=== PATIENT | male | born 1950 ===

== ENCOUNTER 2016-11-16 16:28 | Observation (INO) | payer MEDICARE ==
[2016-11-16 18:10] LABS: URINE BILIRUBIN NEGATIVE (NEGATIVE); URINE BLOOD NEGATIVE (NEGATIVE); URINE CLARITY CLEAR (Clear); URINE COLOR YELLOW (YELLOW); URINE GLUCOSE (UA) NEG (Normal); URINE LEUKOCYTE ESTERASE NEG Leu/uL (Negative); URINE NITRATE NEGATIVE (NEGATIVE); URINE PROTEIN NEGATIVE (NEGATIVE); URINE UROBILINOGEN 0.2-1.0 mg/dL (0.2-1.0)
[2016-11-16 18:11] LABS: BASO % 0.8 % (0.0-2.0); EOS # 0.3 K/uL (0.0-0.7); EOS % 4.6 % (0.0-4.0); HEMOGLOBIN 14.7 g/dL (12.0-18.0); LYMPH % 34.5 % (20.0-40.0); MEAN CELL VOLUME 91.4 fl (80.0-94.0); MEAN CORPUSCULAR HEMOGLOBIN 31.2 pg (27.0-31.0); MEAN CORPUSCULAR HGB CONC 34.1 g/dL (33.0-37.0); MEAN PLATELET VOLUME 8.5 fl (7.2-11.7); MONO # 0.6 K/uL (0.0-0.8); MONO % 9.8 % (0.0-10.0); NEUT # 2.9 K/uL (1.8-7.0); NEUT % 50.3 % (50.0-75.0); NRBC % 0.2 % (0.0-0.0); RBC 4.71 Mil/uL (4.40-5.90); WHITE BLOOD COUNT 5.8 K/uL (4.8-10.8)
[2016-11-16 18:21] LABS: ALB/GLOB RATIO 1.6 (1.0-2.1); ALBUMIN 4.2 g/dL (3.5-5.0); ALT/SGPT 41 U/L (21-72); AST/SGOT 24 U/L (17-59); BLOOD UREA NITROGEN 16 mg/dl (9-20); CALCIUM 9.7 mg/dL (8.4-10.2); GFR AFRICAN-AMERICAN > 60; GFR NON-AFRICAN AMERICAN > 60
[2016-11-16 18:56] LABS: PARTIAL THROMBOPLASTIN TIME 29.4 Seconds (25.6-37.1)
--- NOTE | 2016-11-16 19:15 | ED PDOC ---
HPI: General Adult Time Seen by Provider: 11/16/16 16:42 Chief Complaint (Nursing): Male Genitourinary Chief Complaint (Provider): Male Genitourinary History Per: Patient History/Exam Limitations: no limitations Onset/Duration Of Symptoms: Days (x2 weeks) Current Symptoms Are (Timing): Still Present Additional Complaint(s): 66 y/o female presents to the emergency department with a complaint of a left abdominal pain and flank pain for 2 weeks with worsening since onset. Associated with blood in the urine and nausea. Denies fever, chills, vomiting , diarrhea, or constipation. Of note, patient completed an US on November 12, 2016 as an outpatient which demonstrated stones bilateral with left renal cyst. Dr. Shirin PHAN stated she should return back to the ER if pain worsens. Patient presented to [place] emergency room previously on November 10, 2016 and was given a shot medication for the relief of pain. Urology: Dr. Rocio Crapio MD PMD: Dr. Karly Hughes MD Past Medical History Reviewed: Historical Data, Nursing Documentation, Vital Signs Vital Signs: Last Vital Signs Temp 98.6 F 11/18/16 13:00 Pulse 62 11/18/16 13:00 Resp 18 11/18/16 13:00 BP 114/70 11/18/16 13:00 Pulse Ox 99 11/18/16 13:00 - Medical History PMH: Anxiety, Benign Prostatic Hyperplasia, CAD (with stent), HTN, Hypercholesterolemia - Surgical History Surgical History: Coronary Stent - Family History Family History: States: Unknown Family Hx - Social History Current smoker - smoking cessation education provided: No Alcohol: None Drugs: Denies - Home Medications Home Medications: Ambulatory Orders Medication Instructions Recorded Aspirin [Alpine Aspirin] 81 mg PO DAILY 11/17/16 Atorvastatin Calcium 80 mg pe PO DAILY 11/17/16 Clopidogrel [Plavix] 75 mg PO DAILY 11/17/16 Escitalopram [Lexapro] 10 mg PO DAILY 11/17/16 Fenofibrate [Tricor] 145 mg PO DAILY 11/17/16 Fluticasone Propionate [Flovent 2 sprays KAYCEE DAILY 11/17/16 Diskus] Lidocaine [Lidocare] 1 patch TD TID 11/17/16 Montelukast Sodium [Singulair] 10 mg PO HS 11/17/16 Omeprazole 40 mg PO DAILY 11/17/16 Tamsulosin HCl [Flomax] 0.4 mg PO DAILY 11/17/16 Metoprolol Succinate [Toprol XL] 25 mg PO DAILY #30 tab 11/18/16 Tamsulosin [Flomax] 0.4 mg PO DAILY #30 cap 11/18/16 traMADol [Ultram] 50 mg PO Q6 PRN #20 tab 11/18/16 - Allergies Allergies/Adverse Reactions: Allergies Allergy/AdvReac Type Severity Reaction Status Date / Time No Known Allergies Allergy Verified 11/16/16 16:37 Review of Systems ROS Statement: Except As Marked, All Systems Reviewed And Found Negative Constitutional: Negative for: Fever, Chills Gastrointestinal: Positive for: Nausea, Abdominal Pain. Negative for: Vomiting , Diarrhea, Constipation Genitourinary Male: Positive for: Hematuria Musculoskeletal: Positive for: Other (Left flank pain) Physical Exam - Reviewed Nursing Documentation Reviewed: Yes Vital Signs Reviewed: Yes - Physical Exam Appears: Positive for: Non-toxic, In Acute Distress (Moderate painful distress) Head Exam: Positive for: ATRAUMATIC, NORMAL INSPECTION, NORMOCEPHALIC Skin: Positive for: Normal Color, Warm, Dry Neck: Positive for: Normal, Supple Cardiovascular/Chest: Positive for: Regular Rate, Rhythm. Negative for: Murmur Respiratory: Positive for: Normal Breath Sounds. Negative for: Accessory Muscle Use, Respiratory Distress Gastrointestinal/Abdominal: Positive for: Soft, Tenderness (Tender to palpation to the left upper and left lower quadrant), Distended (Mildly). Negative for: Normal Exam, Mass, Guarding, Rebound Back: Positive for: L CVA Tenderness (to palpation). Negative for: Normal Inspection Extremity: Positive for: Normal ROM. Negative for: Pedal Edema Neurologic/Psych: Positive for: Alert, Oriented - Laboratory Results Result Diagrams: 11/17/16 06:30 11/17/16 06:30 - ECG O2 Sat by Pulse Oximetry: 97 (RA) Pulse Ox Interpretation: Normal Medical Decision Making Medical Decision Making: Time: 17:21 Initial impression: Left flank pain and left abdominal pain. Differential include renal colic, pyelonephritis, colitis, diverticulitis, and cystitis. Initial plan: --Type and Screen STAT --ABD & Pelvis w/o PO & IV Contrast CT --Electrocardiogram STAT --COMP Metabolic Panel --Lact Acid, Plasma --ED Urine Dipstick (POC) --EKG-ED --CBC w/ differential --Partial Thromboplastin Time (COAG) --Prothrombin Time (COAG) --Morphine 4 mg IVP --Ondansetron 4 mg IVP --Blood Culture --Urine Culture --IV Insertion --Urinalysis STAT --Reevaluation Time: 18:47 --Abdomen/pelvis CT FINDINGS: Lower thorax: No acute findings. No pleural effusions. Bibasilar hypoventilatory changes. ABDOMEN: Liver: Unremarkable. No masses. Gallbladder and bile ducts: Unremarkable. No calcified stones. No ductal dilatation. Pancreas: Unremarkable. No ductal dilatation. Spleen: Unremarkable. No splenomegaly. Adrenals: Unremarkable. No mass. Kidneys and ureters: No hydronephrosis. One or 2 small non-obstructing stones in each kidney. No radiodense ureteral stones. A few small left renal cysts. Stomach and bowel: Unremarkable. No obstruction. No mucosal thickening. Appendix: A normal appendix is visualized. PELVIS: Bladder: Unremarkable. No stones. Reproductive: Unremarkable as visualized Intraperitoneal space: Unremarkable. No free air. No significant fluid collection. Bones/joints: No acute fracture nor dislocation. Soft tissues: Unremarkable. Vasculature: Unremarkable. No abdominal aortic aneurysm. Lymph nodes: Unremarkable. No enlarged lymph nodes. IMPRESSION: No acute pathology. Time: 20:05 --Abdomen/Pelvis with PO & IV Contrast CT --Admit to hospital routine on ED Observation for abdominal pain. Scribe Attestation: Documented by Juliane Pat, acting as a scribe for Maryann Hannah MD. Provider Scribe Attestation: All medical record entries made by the Scribe were at my direction and personally dictated by me. I have reviewed the chart and agree that the record accurately reflects my personal performance of the history, physical exam, medical decision making, and the department course for this patient. I have also personally directed, reviewed, and agree with the discharge instructions and disposition. ED OBSERVATION Date of observation admission: 11/16/16 Time of observation admission: 20:06 - Observation admission statement Patient is being placed in observation because:: abdominal pain - Goals of Observation Goals of observation are:: to medicate patient and observe him carefully due to pain. - Progress Note Progress Note: 11/16/16 21:36 --Patient is intaking PO & IV Contrast, preparing for CT completion. CT demonstrated possible appendicitis DW Dr Sams Surgery and Dr Parkinson Hospitalist. Disposition - Clinical Impression Clinical Impression: Abdominal pain - Disposition Disposition Time: 20:00 Condition: SERIOUS - Pt Status Changed To: Hospital Disposition Of: Observation - POA Present On Arrival: None
[2016-11-16] MEDS ORDERED: Iohexol 240 (50 ml) PO ONE (20:05)
[2016-11-16] MEDS ORDERED: Iohexol 240 (50 ml) ONE (20:20)
[2016-11-16] MEDS ORDERED: Iohexol 300 100 ML IJ ONE (21:13)
[2016-11-16] MEDS ORDERED: Sodium Chloride 0.9% 50 ML IV ONE (21:13)
--- NOTE | 2016-11-17 00:06 | CT ---
EXAM: CT Abdomen and Pelvis With Intravenous Contrast CLINICAL HISTORY: 66 years old, male; Pain; Abdominal pain; Flank; Left; Additional info: Luq/llq abd pain TECHNIQUE: Axial computed tomography images of the abdomen and pelvis with intravenous contrast. This CT exam was performed using one or more of the following dose reduction techniques: automated exposure control, adjustment of the mA and/or kV according to patient size, and/or use of iterative reconstruction technique. Coronal and sagittal reformatted images were created and reviewed. CONTRAST: 95 mL of [id number] administered intravenously. COMPARISON: CT - ABD PELVIS W/O PO OR IV CONT 11/16/2016 5:57:52 PM FINDINGS: Lower thorax: Minimal atelectasis. ABDOMEN: Liver: Unremarkable. No mass. Gallbladder and bile ducts: No calcified stones. No ductal dilation. Pancreas: No ductal dilation. No mass. Spleen: No splenomegaly. Adrenals: No mass. Kidneys and ureters: Few probable LEFT renal cysts. Small calculus within LEFT kidney. Punctate calculus within RIGHT kidney. No hydronephrosis. Stomach and bowel: Segmental areas of underdistention of LEFT colon. No definite mural thickening. No obstruction. Appendix: Slightly bulbous tip of appendix with wall calcifications, up to 0.9 cm. No inflammation. PELVIS: Bladder: Distended bladder. Reproductive: Unremarkable as visualized. ABDOMEN and PELVIS: Intraperitoneal space: No significant fluid collection. No free air. Bones/joints: Mild degenerative changes of spine. No acute fracture. Soft tissues: Unremarkable. Vasculature: Mild atherosclerotic disease. No aneurysm. Lymph nodes: No pathologically enlarged lymph nodes. IMPRESSION: 1. Nonobstructing renal calculi. 2. Bulbous tip of appendix with wall calcification but without inflammation. Early appendicitis, mucocele, or mass not entirely excluded. Clinical correlation is needed. 3. Incidental/non-acute findings are described above.
[2016-11-17] MEDS ORDERED: Ampicillin/Sulbactam 3 GM in Sodium Chloride 0.9% 100 ML IVPB STA (00:28)
[2016-11-17] MEDS ORDERED: Sodium Chloride 0.9% 1,000 ML IV SCH (01:15)
--- NOTE | 2016-11-17 01:25 | CP.PCM.HP ---
Present on Admission - Present on Admission Any Indicators Present on Admission: No Past Patient History - Past Social History Alcohol: None Drugs: Denies - CARDIAC Hx Hypercholesterolemia: Yes Hx Hypertension: Yes - PSYCHIATRIC Hx Anxiety: Yes - SURGICAL HISTORY Hx Coronary Stent: Yes - ANESTHESIA Hx Anesthesia: No Meds Allergies/Adverse Reactions: Allergies Allergy/AdvReac Type Severity Reaction Status Date / Time No Known Allergies Allergy Verified 11/16/16 16:37 Physical Exam - Constitutional Appears: No Acute Distress - Head Exam Head Exam: ATRAUMATIC, NORMOCEPHALIC - Eye Exam Eye Exam: EOMI, PERRL - ENT Exam ENT Exam: Mucous Membranes Moist - Neck Exam Neck exam: Positive for: Full Rom - Respiratory Exam Respiratory Exam: Clear to Auscultation Bilateral, NORMAL BREATHING PATTERN - Cardiovascular Exam Cardiovascular Exam: REGULAR RHYTHM, +S1, +S2 - GI/Abdominal Exam GI & Abdominal Exam: Soft, Tenderness Additional comments: mild generalized TTP - Extremities Exam Extremities exam: Positive for: full ROM - Neurological Exam Neurological exam: Alert, CN II-XII Intact, Oriented x3 - Psychiatric Exam Psychiatric exam: Normal Affect, Normal Mood - Skin Skin Exam: Dry, Warm Results - Vital Signs Recent Vital Signs: Last Vital Signs Temp 98.2 F 11/17/16 00:21 Pulse 72 11/17/16 00:21 Resp 18 11/17/16 00:21 BP 150/97 H 11/17/16 00:21 Pulse Ox 98 11/17/16 00:21 - Labs Result Diagrams: 11/16/16 18:00 11/16/16 18:00 - EKG Data EKG Interpreted by: Myself EKG shows normal: Sinus rhythm Rate: Normal - EKG Data EKG comments: 1 deg HB, PVCs - Imaging and Cardiology CT scan - abdomen Status: Report reviewed by me (Non obs calculi, ?early appx) Assessment & Plan (1) Appendicitis Assessment and Plan: 66 y/o male presenting with abd pain. Known nephrolithiasis. ?suspicion for early appendicitis. 1) Early appx -- per surgery, abx not recommended; low suspicion -NPO except medications, IVF -Pain control per scale -Zofran IV for nausea -Surgery consult ([facility], notified) 2) Nephrolithiasis -Cont IVF -Pain control as above -Urology consult 3) CAD -- stable 4) HTN -- stable 5) DVT PPx -- SCDs only Status: Acute (2) Nephrolithiasis Status: Acute (3) CAD (coronary artery disease) Status: Acute (4) HTN (hypertension) Status: Acute (5) DVT prophylaxis Status: Acute
[2016-11-17 07:02] LABS: HEMOGLOBIN 13.9 g/dL (12.0-18.0); MEAN CELL VOLUME 92.1 fl (80.0-94.0); MEAN CORPUSCULAR HEMOGLOBIN 31.1 pg (27.0-31.0); MEAN CORPUSCULAR HGB CONC 33.7 g/dL (33.0-37.0); RBC 4.49 Mil/uL (4.40-5.90); RED CELL DISTRIBUTION WIDTH 14.5 % (11.5-14.5); WHITE BLOOD COUNT 5.2 K/uL (4.8-10.8)
--- NOTE | 2016-11-17 07:40 | CP.PCM.CON ---
<Susie Locke - Last Filed: 11/17/16 07:35> History of Present Illness - History of Present Illness History of Present Illness: Surgery consult for Dr. Sams HPI: This is a 66 y/o male with MHx significant for HTN, HLD, and CAD and nephrolithiasis presents with low abdominal pain. Pain started 2 weeks ago and and more on the L side radiating to hist L flank. Pt had similar episodes in the past. Symptoms became progressively worse. Pain is not associated with food. Denies recent travel/ sick contact/ f/c/n/v/d/CP/SOB/dysuria/hematuria. CT shows renal stones, possible early appendicitis with calcified tips. Surgery was consulted to evaluate for appendicitis. Pt has no white count. MHx: HTN, HLD, CAD, Nephrolithiasis SHx: Coronary stents Allergies: NKDA Medications: Plavix. Social Hx: Lives with family, no tobacco, no significant EtOH use Review of Systems - Review of Systems Review of Systems: See HPI Past Patient History - Past Medical History & Family History Past Medical History?: Yes - Past Social History Smoking Status: Never Smoked - CARDIAC Hx Cardiac Disorders: Yes Hx Hypercholesterolemia: Yes Hx Hypertension: Yes - PULMONARY Hx Respiratory Disorders: No - NEUROLOGICAL Hx Neurological Disorder: No - HEENT Hx HEENT Problems: No - RENAL Hx Kidney Stones: Yes - ENDOCRINE/METABOLIC Hx Endocrine Disorders: No - HEMATOLOGICAL/ONCOLOGICAL Hx Blood Disorders: No Hx AIDS: No Hx Human Immunodeficiency Virus (HIV): No - INTEGUMENTARY Hx Dermatological Problems: No - MUSCULOSKELETAL/RHEUMATOLOGICAL Hx Musculoskeletal Disorders: No Hx Falls: No - GASTROINTESTINAL Hx Gastrointestinal Disorders: No - GENITOURINARY/GYNECOLOGICAL Hx Genitourinary Disorders: Yes Hx Prostate Problems: Yes (bph) - PSYCHIATRIC Hx Psychophysiologic Disorder: Yes Hx Anxiety: Yes Hx Substance Use: No - SURGICAL HISTORY Hx Surgeries: Yes Hx Coronary Stent: Yes - ANESTHESIA Hx Anesthesia: No Hx Anesthesia Reactions: No Hx Malignant Hyperthermia: No Meds Allergies/Adverse Reactions: Allergies Allergy/AdvReac Type Severity Reaction Status Date / Time No Known Allergies Allergy Verified 11/16/16 16:37 - Medications Medications: Current Medications Clopidogrel Bisulfate (Plavix) 75 mg PO DAILY [facility] Escitalopram Oxalate (Lexapro) 10 mg PO DAILY [facility] Hydrochlorothiazide (Hydrodiuril) 25 mg PO DAILY [facility] Sodium Chloride (Sodium Chloride 0.9%) 1,000 mls @ 100 mls/hr IV .Q10H [facility] Stop: 11/17/16 11:14 Last Admin: 11/17/16 03:33 Dose: 100 mls/hr Lisinopril (Zestril) 20 mg PO DAILY [facility] Metoprolol Succinate (Toprol Xl) 50 mg PO DAILY [facility] Morphine Sulfate (Morphine) 1 mg IVP Q4 PRN PRN Reason: Pain, Mild (1-3) Morphine Sulfate (Morphine) 2 mg IVP Q4 PRN PRN Reason: Pain, moderate (4-7) Ondansetron HCl (Zofran Inj) 4 mg IVP Q6 PRN PRN Reason: Nausea/Vomiting Pantoprazole Sodium (Protonix Ec Tab) 40 mg PO DAILY [facility] Tamsulosin HCl (Flomax) 0.4 mg PO DAILY [facility] Physical Exam - Constitutional Appears: Well, No Acute Distress - Head Exam Head Exam: ATRAUMATIC, NORMAL INSPECTION, NORMOCEPHALIC - Eye Exam Eye Exam: EOMI, Normal appearance, PERRL Pupil Exam: NORMAL ACCOMODATION, PERRL - ENT Exam ENT Exam: Mucous Membranes Moist, Normal Exam - Neck Exam Neck exam: Positive for: Normal Inspection - Respiratory Exam Respiratory Exam: Clear to Auscultation Bilateral, NORMAL BREATHING PATTERN - Cardiovascular Exam Cardiovascular Exam: REGULAR RHYTHM - GI/Abdominal Exam GI & Abdominal Exam: Normal Bowel Sounds, Soft, Tenderness. absent: Distended, Firm, Guarding, Hernia Additional comments: Low abd TTP : L >R - Rectal Exam Rectal Exam: NORMAL INSPECTION - Exam Exam: NORMAL INSPECTION - Extremities Exam Extremities exam: Positive for: full ROM, normal inspection - Back Exam Back exam: FULL ROM, NORMAL INSPECTION, tenderness - Neurological Exam Neurological exam: Alert, CN II-XII Intact, Normal Gait, Oriented x3, Reflexes Normal - Psychiatric Exam Psychiatric exam: Normal Affect, Normal Mood - Skin Skin Exam: Dry, Intact, Normal Color, Warm Results - Vital Signs Recent Vital Signs: Last Vital Signs Temp 97.5 F L 11/17/16 03:45 Pulse 64 11/17/16 03:45 Resp 18 11/17/16 04:20 BP 130/81 11/17/16 03:48 Pulse Ox 98 11/17/16 00:21 - Labs Result Diagrams: 11/17/16 06:30 11/16/16 18:00 Labs: Laboratory Results - last 24 hr 11/17/16 06:30 WBC 5.2 RBC 4.49 Hgb 13.9 Hct 41.3 MCV 92.1 MCH 31.1 H MCHC 33.7 RDW 14.5 Plt Count 149 Assessment & Plan - Assessment and Plan (Free Text) Assessment: R/O appendicitis LLQ > RUQ tenderness CT shows renal stones, possible early appendicitis with calcified tips. WBC : WNL -Plavix held until evaluated by attending surgeon today -NPO -Pain control -f/u Urology Will DW attending <Dong Sams - Last Filed: 11/17/16 11:40> History of Present Illness - History of Present Illness History of Present Illness: Patient was seen and examined at the bedside. Agree with resident's note above Meds - Medications Medications: Current Medications Escitalopram Oxalate (Lexapro) 10 mg PO DAILY [facility] Last Admin: 11/17/16 08:39 Dose: 10 mg Lisinopril (Zestril) 20 mg PO DAILY [facility] Last Admin: 11/17/16 08:40 Dose: 20 mg Metoprolol Succinate (Toprol Xl) 50 mg PO DAILY [facility] Last Admin: 11/17/16 08:40 Dose: 50 mg Morphine Sulfate (Morphine) 1 mg IVP Q4 PRN PRN Reason: Pain, Mild (1-3) Morphine Sulfate (Morphine) 2 mg IVP Q4 PRN PRN Reason: Pain, moderate (4-7) Ondansetron HCl (Zofran Inj) 4 mg IVP Q6 PRN PRN Reason: Nausea/Vomiting Pantoprazole Sodium (Protonix Ec Tab) 40 mg PO DAILY [facility] Last Admin: 11/17/16 08:40 Dose: 40 mg Tamsulosin HCl (Flomax) 0.4 mg PO DAILY [facility] Last Admin: 11/17/16 08:38 Dose: 0.4 mg Results - Vital Signs Recent Vital Signs: Last Vital Signs Temp 97.1 F L 11/17/16 08:42 Pulse 63 11/17/16 08:42 Resp 18 11/17/16 08:42 BP 130/73 11/17/16 08:42 Pulse Ox 98 11/17/16 08:42 - Labs Result Diagrams: 11/17/16 06:30 11/17/16 06:30 Labs: Laboratory Results - last 24 hr 11/17/16 11/17/16 06:30 06:30 WBC 5.2 RBC 4.49 Hgb 13.9 Hct 41.3 MCV 92.1 MCH 31.1 H MCHC 33.7 RDW 14.5 Plt Count 149 Sodium 140 Potassium 4.0 Chloride 107 Carbon Dioxide 25 Anion Gap 12 BUN 16 Creatinine 1.0 Est GFR ( Amer) > 60 Est GFR (Non-Af Amer) > 60 Random Glucose 83 Calcium 8.8 - Imaging and Cardiology CT scan - abdomen Status: Image reviewed by me, Report reviewed by me Assessment & Plan - Assessment and Plan (Free Text) Plan: - Pain control - No general surgery intervention at present time - Can start diet pending Urology evaluation - Will follow
[2016-11-17 08:02] LABS: BLOOD UREA NITROGEN 16 mg/dl (9-20); CALCIUM 8.8 mg/dL (8.4-10.2); GFR AFRICAN-AMERICAN > 60; GFR NON-AFRICAN AMERICAN > 60
--- NOTE | 2016-11-17 08:05 | CARD ---
APPROVED REPORT EKG Measurement Heart [id number] <Conclusion> Sinus rhythm with 1st degree AV block with premature atrial complexes with aberrant conduction Inferior infarct, age undetermined Abnormal ECG
[2016-11-17] MEDS: Pantoprazole 40 mg EC Tab PO SCH (08:40)
[2016-11-17] MEDS: Metoprolol Succinate 50 mg XL Tab PO SCH (08:40)
[2016-11-17] MEDS ORDERED: Patient's Own Med (Lisinopril/Hydrochlorothiazide [Lisinopril-Hctz 20-25 Mg Tab] 1 TAB) PO SCH (09:00)
--- NOTE | 2016-11-17 09:49 | CT ---
PROCEDURE: CT Abdomen and Pelvis without intravenous contrast HISTORY: Left flank pain COMPARISON: None. TECHNIQUE: CT scan of the abdomen and pelvis was performed without administration of oral or intravenous contrast. Coronal and sagittal reformatted images were obtained. Radiation dose: Total exam DLP = 1781.10 mGy-cm. This CT exam was performed using one or more of the following dose reduction techniques: Automated exposure control, adjustment of the mA and/or kV according to patient size, and/or use of iterative reconstruction technique. FINDINGS: LOWER THORAX: There is dependent atelectasis in the lung bases. LIVER: The liver is normal in size. No gross lesion or ductal dilatation. GALLBLADDER AND BILE DUCTS: Gallbladder is contracted. No calcified gallstones. PANCREAS: The pancreas is normal in size. No gross lesion or ductal dilatation. SPLEEN: The spleen is normal in size. ADRENALS: Both adrenal glands are normal in size without discrete nodule. KIDNEYS AND URETERS: Both kidneys are normal in size. There are small nonobstructing stones in both kidneys, the largest in the left lower pole measures 5 mm. There are 2 simple cysts in the left lower pole measuring 1.9 cm and 1.7 cm. VASCULATURE: No aortic aneurysm. BOWEL: The small bowel loops are normal in caliber. There are scattered colonic diverticula without CT evidence for acute diverticulitis. APPENDIX: Normal appendix. PERITONEUM: No free fluid. No free air. LYMPH NODES: No enlarged lymph nodes. BLADDER: Partially decompressed. REPRODUCTIVE: The prostate gland is normal in size. BONES: No acute fracture. Mild multilevel degenerative disc disease. Diffuse bone demineralization. OTHER FINDINGS: There are small bilateral fat containing inguinal hernias, larger on the left. There is a small sliding hiatal hernia. IMPRESSION: 1. Small nonobstructing stones in both kidneys, the largest in the left lower pole measures [address] evidence for acute appendicitis. A preliminary report was provided by [employer]
--- NOTE | 2016-11-17 10:18 | RAD ---
HISTORY: admission COMPARISON: No prior. FINDINGS: LUNGS: The lungs are well inflated and clear. PLEURA: No significant pleural effusion identified, no pneumothorax apparent. CARDIOVASCULAR: Normal. OSSEOUS STRUCTURES: No significant abnormalities. VISUALIZED UPPER ABDOMEN: Normal. OTHER FINDINGS: None. IMPRESSION: No active pulmonary disease.
--- NOTE | 2016-11-18 08:02 | CP.PCM.PN ---
<MichellParth abrams - Last Filed: 11/18/16 08:38> Subjective - Date & Time of Evaluation Date of Evaluation: 11/18/16 Time of Evaluation: 07:59 - Subjective Subjective: Surgery Progress note. Dr. Sams Pt seen and examined at bedside. No acute events overnight. Patient states that his abdominal has almost totally resolved. He denies any N/V/D. No CP/SOB. tolerating diet. No F/C. Objective - Vital Signs/Intake and Output Vital Signs (last 24 hours): Temp Pulse Resp BP Pulse Ox 98.5 F 61 19 122/79 97 11/18/16 04:52 11/18/16 04:52 11/18/16 04:52 11/18/16 04:52 11/18/16 04:52 - Medications Medications: Current Medications Escitalopram Oxalate (Lexapro) 10 mg PO DAILY [facility] Last Admin: 11/17/16 08:39 Dose: 10 mg Finasteride (Proscar) 5 mg PO DAILY [facility] Last Admin: 11/17/16 15:00 Dose: 5 mg Lisinopril (Zestril) 20 mg PO DAILY [facility] Last Admin: 11/17/16 08:40 Dose: 20 mg Metoprolol Succinate (Toprol Xl) 50 mg PO DAILY [facility] Last Admin: 11/17/16 08:40 Dose: 50 mg Morphine Sulfate (Morphine) 1 mg IVP Q4 PRN PRN Reason: Pain, Mild (1-3) Last Admin: 11/17/16 13:17 Dose: 1 mg Morphine Sulfate (Morphine) 2 mg IVP Q4 PRN PRN Reason: Pain, moderate (4-7) Ondansetron HCl (Zofran Inj) 4 mg IVP Q6 PRN PRN Reason: Nausea/Vomiting Pantoprazole Sodium (Protonix Ec Tab) 40 mg PO DAILY [facility] Last Admin: 11/17/16 08:40 Dose: 40 mg Tamsulosin HCl (Flomax) 0.4 mg PO DAILY [facility] Last Admin: 11/17/16 08:38 Dose: 0.4 mg Tramadol HCl (Ultram) 50 mg PO Q6 PRN PRN Reason: Pain, moderate (4-7) - Labs Labs: 11/17/16 06:30 11/17/16 06:30 PT 11.0 Seconds (9.8-13.1) 07/09/17 18:00 INR 1.0 (0.9-1.2) 11/16/16 18:00 APTT 29.4 Seconds (25.6-37.1) 11/16/16 18:00 - Constitutional Appears: Well, No Acute Distress - Head Exam Head Exam: ATRAUMATIC, NORMAL INSPECTION, NORMOCEPHALIC - Eye Exam Eye Exam: EOMI - ENT Exam ENT Exam: Mucous Membranes Moist - Neck Exam Neck Exam: Full ROM - Respiratory Exam Respiratory Exam: NORMAL BREATHING PATTERN - Cardiovascular Exam Cardiovascular Exam: absent: JVD - GI/Abdominal Exam GI & Abdominal Exam: Soft Additional comments: Non-Distended. Tenderness to deep palpation in left lower quadrant. No guarding , - Extremities Exam Extremities Exam: Normal Inspection. absent: Calf Tenderness - Neurological Exam Neurological Exam: Alert, Awake, Oriented x3 - Psychiatric Exam Psychiatric exam: Normal Affect, Normal Mood - Skin Skin Exam: Dry, Intact, Normal Color, Warm Assessment and Plan - Assessment and Plan (Free Text) Assessment: 66yo M with abdominal pain - CT shows renal stones, possible early appendicitis with calcification at tip - May Advance diet as tolerated - Pain control - f/u Urology plan - No plans for any acute surgical intervention at this time further recs as per Dr. Flaquita Galarza PGY1 <Dong Sams - Last Filed: 11/18/16 11:01> Subjective - Date & Time of Evaluation Time of Evaluation: 10:10 - Subjective Subjective: Patient was seen and examined at the bedside. Agree with resident's note above. Objective - Vital Signs/Intake and Output Vital Signs (last 24 hours): Temp Pulse Resp BP Pulse Ox 98.4 F 59 L 20 118/73 95 11/18/16 08:00 11/18/16 08:46 11/18/16 08:00 11/18/16 08:46 11/18/16 08:00 - Medications Medications: Current Medications Escitalopram Oxalate (Lexapro) 10 mg PO DAILY [facility] Last Admin: 11/18/16 08:45 Dose: 10 mg Finasteride (Proscar) 5 mg PO DAILY [facility] Last Admin: 11/18/16 08:45 Dose: 5 mg Lisinopril (Zestril) 20 mg PO DAILY [facility] Last Admin: 11/18/16 08:46 Dose: Not Given Metoprolol Succinate (Toprol Xl) 50 mg PO DAILY [facility] Last Admin: 11/18/16 08:46 Dose: Not Given Morphine Sulfate (Morphine) 1 mg IVP Q4 PRN PRN Reason: Pain, Mild (1-3) Last Admin: 11/17/16 13:17 Dose: 1 mg Morphine Sulfate (Morphine) 2 mg IVP Q4 PRN PRN Reason: Pain, moderate (4-7) Ondansetron HCl (Zofran Inj) 4 mg IVP Q6 PRN PRN Reason: Nausea/Vomiting Pantoprazole Sodium (Protonix Ec Tab) 40 mg PO DAILY [facility] Last Admin: 11/18/16 08:45 Dose: 40 mg Tamsulosin HCl (Flomax) 0.4 mg PO DAILY [facility] Last Admin: 11/18/16 08:45 Dose: 0.4 mg Tramadol HCl (Ultram) 50 mg PO Q6 PRN PRN Reason: Pain, moderate (4-7) - Labs Labs: 11/17/16 06:30 11/17/16 06:30 PT 11.0 Seconds (9.8-13.1) 11/16/16 18:00 INR 1.0 (0.9-1.2) 11/16/16 18:00 APTT 29.4 Seconds (25.6-37.1) 11/16/16 18:00 Assessment and Plan - Assessment and Plan (Free Text) Plan: - No general surgery intervention at present time - Urology follow up - Patient will require repeat CT scan in 2 months to follow up on the calcification of the appendiceal tip - General surgery will sign off - Please re-consult as needed
[2016-11-18] MEDS: Pantoprazole 40 mg EC Tab PO SCH (08:45)
[2016-11-18] MEDS: Metoprolol Succinate 50 mg XL Tab PO SCH (08:46)
[2016-11-18 13:00] VITALS: BP 114/70; PULSE 62; RESP 18; TEMP 98.6
--- NOTE | 2016-11-18 14:19 | CT ---
PROCEDURE: CT Lumbar Spine without contrast HISTORY: ? lumbar radiculopathy COMPARISON: None. TECHNIQUE: Axial computed tomography images were obtained of the lumbar spine without the use of intravenous contrast. Coronal and sagittal reformatted images were created and reviewed. Radiation dose: Total exam DLP = 1719.83 mGy-cm. This CT exam was performed using one or more of the following dose reduction techniques: Automated exposure control, adjustment of the mA and/or kV according to patient size, and/or use of iterative reconstruction technique. FINDINGS: VERTEBRAE: Unremarkable. No fracture. Normal alignment. DISCS/SPINAL CANAL/NEURAL FORAMINA: L1-2: Unremarkable. L2-3: Minimal disc bulge. No focal herniation. Mild bilateral neural foraminal stenosis. No central spinal stenosis. L3-4: Mild disc bulge. No focal herniation. Mild right neural foraminal stenosis. No left neural foraminal stenosis. No central spinal stenosis. L4-5: Minimal disc bulge. No focal herniation. No spinal or neural foraminal stenosis. L5-S1: Diffuse disc bulge. No focal herniation. No spinal or neural foraminal stenosis. PARASPINAL SOFT TISSUES: Approximately 5 mm left lower pole renal calculus. Probable lobe left lower pole renal cyst. See report of CT abdomen/pelvis 11/16/2016. OTHER FINDINGS: None. IMPRESSION: No fracture/ dislocation. Multilevel mild disc bulge. No focal disc herniation. Bilateral neural foraminal stenosis L2-3 and right neural foraminal stenosis at L3-4. No central spinal stenosis.
--- NOTE | 2016-11-18 14:47 | CP.PCM.DIS ---
Provider - Provider Date of Admission: 11/17/16 00:27 Attending physician: Suhas Parkinson MD Primary care physician: Dr Cliff Hughes Consults: Surgery: Dr Sams Urology: Dr Carpio Time Spent in preparation of Discharge (in minutes): 40 Diagnosis - Discharge Diagnosis (1) Appendicitis Status: Ruled-out (2) Nephrolithiasis Status: Chronic (3) CAD (coronary artery disease) Status: Chronic (4) HTN (hypertension) Status: Chronic (5) DVT prophylaxis Status: Acute Hospital Course - Lab Results Lab Results: Most Recent Lab Values WBC 5.2 K/uL (4.8-10.8) 11/17/16 06:30 RBC 4.49 Mil/uL (4.40-5.90) 11/17/16 06:30 Hgb 13.9 g/dL (12.0-18.0) 11/17/16 06:30 Hct 41.3 % (35.0-51.0) 11/17/16 06:30 MCV 92.1 fl (80.0-94.0) 11/17/16 06:30 MCH 31.1 pg (27.0-31.0) H 11/17/16 06:30 MCHC 33.7 g/dL (33.0-37.0) 11/17/16 06:30 RDW 14.5 % (11.5-14.5) 11/17/16 06:30 Plt Count 149 K/uL (130-400) 11/17/16 06:30 MPV 8.5 fl (7.2-11.7) 11/16/16 18:00 Neut % (Auto) 50.3 % (50.0-75.0) 11/16/16 18:00 Lymph % (Auto) 34.5 % (20.0-40.0) 11/16/16 18:00 [place] % (Auto) 9.8 % (0.0-10.0) 11/16/16 18:00 Eos % (Auto) 4.6 % (0.0-4.0) H 11/16/16 18:00 Baso % (Auto) 0.8 % (0.0-2.0) 11/16/16 18:00 Neut # 2.9 K/uL (1.8-7.0) 11/16/16 18:00 Lymph # 2.0 K/uL (1.0-4.3) 11/16/16 18:00 [place] # 0.6 K/uL (0.0-0.8) 11/16/16 18:00 Eos # 0.3 K/uL (0.0-0.7) 11/16/16 18:00 Baso # 0.0 K/uL (0.0-0.2) 11/16/16 18:00 PT 11.0 Seconds (9.8-13.1) 11/16/16 18:00 INR 1.0 (0.9-1.2) 11/16/16 18:00 APTT 29.4 Seconds (25.6-37.1) 11/16/16 18:00 Sodium 140 mmol/l (132-148) 11/17/16 06:30 Potassium 4.0 MMOL/L (3.6-5.0) 11/17/16 06:30 Chloride 107 mmol/L (98-107) 11/17/16 06:30 Carbon Dioxide 25 mmol/L (22-30) 11/17/16 06:30 Anion Gap 12 (10-20) 11/17/16 06:30 BUN 16 mg/dl (9-20) 11/17/16 06:30 Creatinine 1.0 mg/dL (0.8-1.5) 11/17/16 06:30 Est GFR ( Amer) > 60 11/17/16 06:30 Est GFR (Non-Af Amer) > 60 11/17/16 06:30 Random Glucose 83 mg/dL (75-110) 11/17/16 06:30 Lactic Acid 1.4 MMOL/L (0.7-2.1) 11/16/16 17:56 Calcium 8.8 mg/dL (8.4-10.2) 11/17/16 06:30 Total Bilirubin 0.5 mg/dl (0.2-1.3) 11/16/16 18:00 AST 24 U/L (17-59) 11/16/16 18:00 ALT 41 U/L (21-72) 11/16/16 18:00 Alkaline Phosphatase 73 U/L (38-126) 11/16/16 18:00 Total Protein 6.8 G/DL (6.3-8.2) 11/16/16 18:00 Albumin 4.2 g/dL (3.5-5.0) 11/16/16 18:00 Globulin 2.6 gm/dL (2.2-3.9) 11/16/16 18:00 Albumin/Globulin Ratio 1.6 (1.0-2.1) 11/16/16 18:00 Urine Color Yellow (YELLOW) 11/16/16 18:04 Urine Clarity Clear (Clear) 11/16/16 18:04 Urine pH 6.0 (5.0-8.0) 11/16/16 18:04 Ur Specific [place] 1.006 (1.003-1.030) 11/16/16 18:04 Urine Protein Negative mg/dL (NEGATIVE) 11/16/16 18:04 Urine Glucose (UA) Neg mg/dL (Normal) 11/16/16 18:04 Urine Ketones Negative mg/dL (NEGATIVE) 11/16/16 18:04 Urine Blood Negative (NEGATIVE) 11/16/16 18:04 Urine Nitrate Negative (NEGATIVE) 11/16/16 18:04 Urine Bilirubin Negative (NEGATIVE) 11/16/16 18:04 Urine Urobilinogen 0.2-1.0 mg/dL (0.2-1.0) 11/16/16 18:04 Ur Leukocyte Esterase Neg [place]/uL (Negative) 11/16/16 18:04 Urine RBC (Auto) < 1 /hpf (0-3) 11/16/16 18:04 Urine Microscopic WBC < 1 /hpf (0-5) 11/16/16 18:04 Blood Type O POSITIVE 11/16/16 18:00 Blood Type Confirm O POSITIVE 11/16/16 18:32 Antibody Screen Negative 11/16/16 18:00 BBK History Checked No verified bt 11/16/16 18:00 - Hospital Course Hospital Course: 66 y/o male presented with with abd pain. Known Hx of nephrolithiasis. He was observed in the hospital for possible early Appenicitis. Surgery was consulted- Acute AP was ruled out. Abd pain resolved. 1) Acute Appendicitis ruled out -NPO except medications, IVF -Pain control per scale -Zofran IV for nausea -Surgery consult - Dr Sams - unlikely AP, rec repeat CT of abdomen in 1 month - will d/c pt home, pt to ff up with PMD and with DR Graves, rpt CT of ab in 1month 2) Nephrolithiasis - CT scan showed nonobstructing renal stones -Cont IVF -Pain control as above -Urology consulted- Dr Carpio - cont Flomax (3) CAD (coronary artery disease) Status: Acute cont ASA, Toprol and statin outpt Cardio ff up with Dr Calles (4) HTN (hypertension) Status: Acute cont Toprol (5) DVT prophylaxis Status: Acute Lovenox Discharge Exam - Head Exam Head Exam: ATRAUMATIC, NORMAL INSPECTION, NORMOCEPHALIC - Eye Exam Eye Exam: EOMI, Normal appearance, PERRL Pupil Exam: NORMAL ACCOMODATION - ENT Exam ENT Exam: Mucous Membranes Moist, Normal External Ear Exam - Neck Exam Neck exam: Full Rom - Respiratory Exam Respiratory Exam: NORMAL BREATHING PATTERN. absent: Rales, Wheezes, Respiratory Distress - Cardiovascular Exam Cardiovascular Exam: REGULAR RHYTHM, +S1, +S2 - GI/Abdominal Exam GI & Abdominal Exam: Normal Bowel Sounds, Soft. absent: Tenderness - Back Exam Back exam: FULL ROM, NORMAL INSPECTION, paraspinal tenderness. absent: CVA tenderness (L), CVA tenderness (R), vertebral tenderness - Neurological Exam Neurological exam: Alert, CN II-XII Intact, Normal Gait, Oriented x3, Reflexes Normal - Psychiatric Exam Psychiatric exam: Normal Affect, Normal Mood - Skin Skin Exam: Dry, Normal Color, Warm Discharge Plan - Discharge Medications Prescriptions: Metoprolol Succinate [Toprol XL] 25 mg PO DAILY #30 tab Tamsulosin [Flomax] 0.4 mg PO DAILY #30 cap traMADol [Ultram] 50 mg PO Q6 PRN #20 tab PRN Reason: Pain, Moderate (4-7) - Follow Up Plan Condition: GOOD Instructions: Acute Abdominal Pain (DC) Additional Instructions: ff up with Dr Sams in 4wks needs rpt CT scan of the abdomen in 1 month ff up with PMD german for further work up Referrals: Dong Sams MD [Staff Provider] - Karly Hughes MD [Medical Doctor] -
--- NOTE | 2016-11-18 16:00 | CP.PCM.CON ---
History of Present Illness - History of Present Illness History of Present Illness: urology Called to see this 66 yr male for possible renal colic and abdominal pain. Pt on admission had a CT performed. Urologically he has incidental renal tiny calculi causing no clinical obstruction. He does have low back and abdominal pain with no Urological corralation Will monitor if intervention needed Past Patient History - Past Medical History & Family History Past Medical History?: Yes - Past Social History Smoking Status: Never Smoked - CARDIAC Hx Cardiac Disorders: Yes Hx Hypercholesterolemia: Yes Hx Hypertension: Yes - PULMONARY Hx Respiratory Disorders: No - NEUROLOGICAL Hx Neurological Disorder: No - HEENT Hx HEENT Problems: No - RENAL Hx Kidney Stones: Yes - ENDOCRINE/METABOLIC Hx Endocrine Disorders: No - HEMATOLOGICAL/ONCOLOGICAL Hx Blood Disorders: No Hx AIDS: No Hx Human Immunodeficiency Virus (HIV): No - INTEGUMENTARY Hx Dermatological Problems: No - MUSCULOSKELETAL/RHEUMATOLOGICAL Hx Musculoskeletal Disorders: No Hx Falls: No - GASTROINTESTINAL Hx Gastrointestinal Disorders: No - GENITOURINARY/GYNECOLOGICAL Hx Genitourinary Disorders: Yes Hx Prostate Problems: Yes (bph) - PSYCHIATRIC Hx Psychophysiologic Disorder: Yes Hx Anxiety: Yes Hx Substance Use: No - SURGICAL HISTORY Hx Surgeries: Yes Hx Coronary Stent: Yes - ANESTHESIA Hx Anesthesia: No Hx Anesthesia Reactions: No Hx Malignant Hyperthermia: No Meds Home Medications: Home Medication List Medication Instructions Recorded Confirmed Type Metoprolol Succinate [Toprol XL] 25 mg PO DAILY #30 tab 11/18/16 Rx Tamsulosin [Flomax] 0.4 mg PO DAILY #30 cap 11/18/16 Rx traMADol [Ultram] 50 mg PO Q6 PRN #20 tab 11/18/16 Rx Allergies/Adverse Reactions: Allergies Allergy/AdvReac Type Severity Reaction Status Date / Time No Known Allergies Allergy Verified 11/16/16 16:37 - Medications Medications: Current Medications Escitalopram Oxalate (Lexapro) 10 mg PO DAILY [facility] Last Admin: 11/18/16 08:45 Dose: 10 mg Finasteride (Proscar) 5 mg PO DAILY [facility] Last Admin: 11/18/16 08:45 Dose: 5 mg Lisinopril (Zestril) 20 mg PO DAILY [facility] Last Admin: 11/18/16 08:46 Dose: Not Given Metoprolol Succinate (Toprol Xl) 50 mg PO DAILY [facility] Last Admin: 11/18/16 08:46 Dose: Not Given Morphine Sulfate (Morphine) 1 mg IVP Q4 PRN PRN Reason: Pain, Mild (1-3) Last Admin: 11/17/16 13:17 Dose: 1 mg Morphine Sulfate (Morphine) 2 mg IVP Q4 PRN PRN Reason: Pain, moderate (4-7) Ondansetron HCl (Zofran Inj) 4 mg IVP Q6 PRN PRN Reason: Nausea/Vomiting Pantoprazole Sodium (Protonix Ec Tab) 40 mg PO DAILY [facility] Last Admin: 11/18/16 08:45 Dose: 40 mg Tamsulosin HCl (Flomax) 0.4 mg PO DAILY [facility] Last Admin: 11/18/16 08:45 Dose: 0.4 mg Tramadol HCl (Ultram) 50 mg PO Q6 PRN PRN Reason: Pain, moderate (4-7) Results - Vital Signs Recent Vital Signs: Last Vital Signs Temp 98.6 F 11/18/16 13:00 Pulse 62 11/18/16 13:00 Resp 18 11/18/16 13:00 BP 114/70 11/18/16 13:00 Pulse Ox 99 11/18/16 13:00 - Labs Result Diagrams: 11/17/16 06:30 11/17/16 06:30
[2016-11-20 00:07] VITALS: O2SAT 97
== END 2016-11-18 15:30 | disposition home or self-care (01) ==
LOC: H.ER 16:28 → H.EROBSV 20:06 → OBSVTOIN 11-17 00:27 → INTOOBSV 11-17 00:27 → H.ERHOLD 11-17 00:27 → H.TEL 11-17 04:06
PROVIDERS: ADMIT Internal Medicine; ATTEND Internal Medicine
DX: N20.0 Calculus of kidney (principal); I25.10 Atherosclerotic heart disease of native coronary artery without angina pectoris; I10 Essential (primary) hypertension; E78.5 Hyperlipidemia, unspecified; R10.814 Left lower quadrant abdominal tenderness; R10.811 Right upper quadrant abdominal tenderness; Z95.5 Presence of coronary angioplasty implant and graft
CPT/HCPCS: 36415; 71010; 72131; 74176; 74177; 80048; 80053; 81003; 83605; 85025; 85027; 85610; 85730; 86850; 86900; 87040; 87086; 93005; 96374; 96375; 97161; 99284; G0378; G8978; G8979; G8980; J2270; J2405; J7040; Q9966; Q9967